=== PATIENT | female | born 1945 | race Caucasian/White ===

== ENCOUNTER → 2017-04-15 | Outpatient (CLI) | payer OTHER ==
[2015-07-19 10:21] VITALS: BP 115/55
--- NOTE | 2017-04-20 14:32 | MG ---
HISTORY: SCREENING Comparison: 04/14/2016 FINDINGS: Bilateral CC and MLO projections of the right and left breast were obtained. Scattered fibroglandula r tissue is seen to be present. No significant architectural distortion, mass or clustered microcalc ifications can be observed to suggest malignancy. No skin thickening or nipple retraction is appreci ated. No pathological lymphadenopathy can be identified. Benign-appearing calcifications scattered throughout the right and left breasts are observed. IMPRESSION: NO RADIOGRAPHIC EVIDENCE OF MALIGNANCY. ACR CATEGORY 2 - benign findings. FOLLOW-UP EXAM 1 YEAR. Diagnostic CAD was utilized and reviewed. * 0 (ZERO) - ASSESSMENT INCOMPLETE; ADDITIONAL IMAGING IS NEEDED. * 1/ (ONE) - NEGATIVE. * 2/II (TWO) - BENIGN FINDINGS. * 3/III (THREE) - PROBABLY BENIGN FINDING; SHORT INTERVAL FOLLOW-UP SUGGESTED. * 4/IV (FOUR) - SUSPICIOUS ABNORMALITY; BIOPSY SHOULD BE CONSIDERED. * 5/V - HIGHLY SUSPICIOUS OF MALIGNANCY; BIOPSY SHOULD BE PERFORMED. A NEGATIVE X-RAY REPORT SHOULD NOT DELAY BIOPSY IF A DOMINANT OR CLINICALLY SUSPICIOUS MASS IS PRESENT; 4 TO 8 PERCENT OF CANCERS ARE NOT IDENTIFIED BY X-RAY. A NEGA TIVE REPORT MAY REINFORCE THE CLINICAL IMPRESSION. ADENOSIS AND DENSE BREASTS MAY OBSCURE AN UNDERLY ING NEOPLASM. Reported By:
== END ==
LOC: RAD 10:00
PROVIDERS: ATTEND Internal Medicine
DX: Z12.31 Encounter for screening mammogram for malignant neoplasm of breast (principal)
CPT/HCPCS: 77067

== ENCOUNTER 2017-11-06 12:19 | Observation (INO) ==
[2017-11-06 12:26] VITALS: BMI 23.7
--- NOTE | 2017-11-06 12:49 | DR.NAUSEAF ---
HPI - Time Seen Time seen: 12:45 - Primary Care Physician Primary Care Physician: DAR MENDENHALL - HPI Comment HPI Comment: DIZZINESS, NAUSEA, ELEVATED BP. 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 - Reviewed Nurses Notes Reviewed: Yes - Source History Provided: Patient - Mode of Arrival Mode of Arrival: Wheelchair - Timing Onset of Chief Complaint: 11/06/17 - Context Onset: Spontaneous Recent: None : No History of: None - Quality Quality: Other (NAUSEA, NO VOMITING.) - Associated Signs and Symptoms Abdominal Pain Quality: Other (NONE) Symptoms: denies: Abdominal Pain PMH - PMH Past Medical History: Yes Past Medical History: Hypertension Past Medical History Comment: AFIB, Past Surgical History: Yes Surgical History: Hysterectomy, Other - Family History History of Family Medical Conditions: Yes Family Medical History: Diabetes Mellitus, Cancer, [place], Heart Failure, Hypertension - Social History Does patient currently use any type of tobacco product: No Have you used tobacco products in the last 12 months: No Type of Tobacco Use: None Does any household member use tobacco: No Alcohol Use: None Do you use any recreational Drugs:: No Lives With: Alone Lives Where: Home - infectious screening In the last 2 months have you had wt loss of >10#?: NO Have you had fever, night sweats or hemotysis?: No Have you traveled outside the country in the last 6 months?: No Isolation: Standard ROS - Review of Systems Constitutional: Weakness, Fatigue Eyes: No Symptoms Reported. negative: Eye Pain, Discharge ENTM: No Symptoms Reported. negative: Ear Pain, Nose Discharge, Nose Congestion , Throat Pain Respiratoy: Short of Breath (ONEXERSION). negative: Wheezing, Hemoptysis Cardiovascular: Chest Pain Gastrointestinal/Abdominal: Nausea Genitourinary: No Symptoms Reported Neurological: Headache, Weakness, Dizziness Musculoskeletal: No Symptoms Reported Integumentary: No Symptoms Reported Hematologic/Lymphatic: No Symptoms Reported Endocrine: No Symptoms Reported All Other Systems: Reviewed and Negative PE - General Limitations: No Limitations General Appearance: Alert - Head Head Exam: Normal Inspection - Eyes Eye exam: Normal Appearance - ENT ENT Exam: Normal External Ear Exam - Neck Neck Exam: Trachea Midline - Chest Chest Inspection: Symmetric Chest Wall Rise - Respiratory Respiratory Exam: Normal Lung Sounds Bilat Respiratory Exam: Bilateral Clear to Auscultation - Cardiovascular Cardiovascular Exam: Regular Rate, Normal Rhythm, Normal Heart Sounds - Abdominal Exam Abdominal Exam: Normal Bowel Sounds, Soft. negative: Tenderness - Rectal Rectal Exam: Deferred - External Exam: Female: Deferred : Speculum Exam (Female): Deferred : Bimanual Exam (female): Deferred - Extremities Extremities Exam: Normal Inspection - Back Back Exam: Normal Inspection - Neurologic Neurological Exam: Alert, Oriented X3, CN II-XII Intact. negative: Motor Sensory Deficit - Psychiatric Psychiatric Exam: Normal Affect, Normal Mood, Anxious - Skin Skin Exam: Normal Color - Vital Signs Vitals: Temperature 97.0 F Pulse Rate 61 Respiratory Rate 20 Blood Pressure [Left Arm] 113/56 Blood Pressure [Right Arm] 187/77 Blood Pressure 225/90 O2 Sat by Pulse Oximetry 100 MDM - Additional Information Obtained Additional Information Obtained From: Family (DIZZINESS, UNCONTROL HYPERTENSION , CHEST PAIN UTI) - Differential Diagnosis Differential Diagnosis Comment: DIZZINESS, CHEST PAIN, CVA, UNCONTROL HYPERTENSION Course - Treatment Treatment: SEE ORDERS. - Education/Counseling Education/Counseling: Patient, Family, Education Educated On: Diagnosis, Needs for Follow Up ROR - Labs Reviewed Laboratory Results Reviewed?: Yes Result Diagrams: 11/06/17 13:18 11/06/17 13:18 - XRAY XRAY Interpreted by: Radiologist XRAY Findings: REPORT DISCUSS WITH PATIENT. - EKG Rhythm: NSR (EKG NOTED.) - Labs Reviewed Laboratory: WBC 9.4 X10^3/uL (3.6-10.0) 11/06/17 13:18 RBC 4.33 X10^6/uL (3.5-5.4) 11/06/17 13:18 Hgb 12.8 g/dL (12.0-16.0) 11/06/17 13:18 Hct 37.6 % (36.0-47.0) 11/06/17 13:18 MCV 86.9 fL (80.0-100.0) 11/06/17 13:18 MCH 29.6 pg (27.0-34.0) 11/06/17 13:18 MCHC 34.0 g/dL (33.0-35.0) 11/06/17 13:18 RDW 13.1 % (11.6-16.5) 11/06/17 13:18 Plt Count 312 X10^3/uL (150.0-450.0) 11/06/17 13:18 MPV 8.2 fL (7.4-11.0) 11/06/17 13:18 Neut % (Auto) 81.2 % (42.0-75.0) H 11/06/17 13:18 Lymph % (Auto) 13.6 % (21.0-51.0) L 11/06/17 13:18 [place] % (Auto) 4.1 % (0.0-13.0) 11/06/17 13:18 Eos % (Auto) 0.5 % (0.9-2.9) L 11/06/17 13:18 Baso % (Auto) 0.6 % (0.2-1.0) 11/06/17 13:18 Neut # (Auto) 7.7 x10^3/uL (2.2-4.8) H 11/06/17 13:18 Lymph # (Auto) 1.3 X10^3/uL (1.3-2.9) 11/06/17 13:18 [place] # (Auto) 0.4 x10^3/uL (0.3-0.8) 11/06/17 13:18 Eos # (Auto) 0.0 x10^3/uL (0.0-0.2) 11/06/17 13:18 Baso # (Auto) 0.1 X10^3/uL (0.0-0.1) 11/06/17 13:18 Absolute Nucleated RBC 0.0 /100WBC 11/06/17 13:18 Sodium 137 mmol/L (136-145) 11/06/17 13:18 Corrected Sodium 137 mmol/L (136-145) 11/06/17 13:18 Potassium 4.5 mmol/L (3.5-5.1) 11/06/17 13:18 Chloride 102 mmol/L (98-107) 11/06/17 13:18 Carbon Dioxide 26.2 mmol/L (21-32) 11/06/17 13:18 BUN 24 mg/dL (7-18) H 11/06/17 13:18 Creatinine 0.91 mg/dL (0.55-1.02) 11/06/17 13:18 Est GFR (MDRD) Af Amer > 60 (>60) 11/06/17 13:18 Est GFR (MDRD) Non-Af > 60 (>60) 11/06/17 13:18 Glucose 120 mg/dL (65-99) H 11/06/17 13:18 Calcium 9.5 mg/dL (8.5-10.1) 11/06/17 13:18 Corrected Calcium TNP 11/06/17 13:18 Total Bilirubin 0.50 mg/dL (0.2-1.0) 11/06/17 13:18 AST 18 Units/L (15-37) 11/06/17 13:18 ALT 22 Units/L (12-78) 11/06/17 13:18 Alkaline Phosphatase 103 Units/L (46-116) 11/06/17 13:18 Creatine Kinase 74 Units/L (26-192) 11/06/17 13:18 CK-MB (CK-2) 1.5 ng/mL (0-4.0) 11/06/17 13:18 CK/CKMB % Calc 2.0 % (<4) 11/06/17 13:18 Troponin I < 0.02 ng/mL (0-1.5) 11/06/17 13:18 Total Protein 7.9 g/dL (6.4-8.2) 11/06/17 13:18 Albumin 3.9 g/dL (3.4-5.0) 11/06/17 13:18 Globulin 4.0 g/dL (2.5-4.5) 11/06/17 13:18 Albumin/Globulin Ratio 1.0 Ratio (1.1-2.1) L 11/06/17 13:18 Specimen Type Clean catch urine 11/06/17 14:28 Urine Color Yellow (YELLOW) 11/06/17 14:28 Urine Appearance Clear (CLEAR) 11/06/17 14:28 Urine pH 7.0 (5.0 - 8.0) 11/06/17 14:28 Ur Specific [place] 1.010 (1.000-1.030) 11/06/17 14:28 Urine Protein 1+ (NEGATIVE) 11/06/17 14:28 Urine Glucose (UA) Negative (NEGATIVE) 11/06/17 14:28 Urine Ketones Negative (NEGATIVE) 11/06/17 14:28 Urine Occult Blood 2+ (NEGATIVE) 11/06/17 14:28 Urine Nitrite Negative (NEGATIVE) 11/06/17 14:28 Urine Bilirubin Negative (NEGATIVE) 11/06/17 14:28 Urine Urobilinogen Normal (NORMAL) 11/06/17 14:28 Ur Leukocyte Esterase 1+ (NEGATIVE) 11/06/17 14:28 - Diagnosis Discharge Problem: Uncontrolled hypertension, Dizziness Chest pain Qualifiers: Chest pain type: other chest pain Qualified Code(s): R07.89 - Other chest pain ; R07.8 - Other chest pain - Discharge Plan Disposition: 09 ADMITTED INPATIENT Condition: Stable
[2017-11-06 13:39] LABS: BASOPHILS # (AUTO) 0.1 X10^3/uL (0.0-0.1); BASOPHILS % (AUTO) 0.6 % (0.2-1.0); EOSINOPHILS % (AUTO) 0.5 % (0.9-2.9); HEMATOCRIT 37.6 % (36.0-47.0); HEMOGLOBIN 12.8 g/dL (12.0-16.0); LYMPHOCYTES # (AUTO) 1.3 X10^3/uL (1.3-2.9); LYMPHOCYTES % (AUTO) 13.6 % (21.0-51.0); MEAN CORPUSCULAR HEMOGLOBIN 29.6 pg (27.0-34.0); MEAN CORPUSCULAR VOLUME 86.9 fL (80.0-100.0); MEAN PLATELET VOLUME 8.2 fL (7.4-11.0); MONOCYTES # (AUTO) 0.4 x10^3/uL (0.3-0.8); MONOCYTES % (AUTO) 4.1 % (0.0-13.0); NEUTROPHILS # (AUTO) 7.7 x10^3/uL (2.2-4.8); NEUTROPHILS % (AUTO) 81.2 % (42.0-75.0); PLATELET COUNT 312 X10^3/uL (150.0-450.0); RED BLOOD COUNT 4.33 X10^6/uL (3.5-5.4); RED CELL DISTRIBUTION WIDTH 13.1 % (11.6-16.5); WHITE BLOOD COUNT 9.4 X10^3/uL (3.6-10.0)
--- NOTE | 2017-11-06 13:40 | CT ---
HISTORY: Headache, dizziness Study: CT head without contrast Comparison: None Technique: Axial noncontrast images with coronal and sagittal reformats. Dose reduction procedures we re used with mA/kv adjusted for body size. Findings: The ventricles are normal in size shape and position. There are no areas of abnormal attenuation to s uggest recent or remote CVA,, mass lesion, or extra-axial fluid collection. The visualized sinuses ar e clear. The calvarium is intact. IMPRESSION: No significant abnormality identified Reported By:
[2017-11-06] MEDS ORDERED: TORADOL 30 MG VIAL IVP ONE (13:44)
[2017-11-06] MEDS ORDERED: TORADOL 30 MG VIAL ONE (13:47)
[2017-11-06 13:53] LABS: BLOOD UREA NITROGEN 24 mg/dL (7-18); CALCIUM 9.5 mg/dL (8.5-10.1); CARBON DIOXIDE 26.2 mmol/L (21-32); CHLORIDE 102 mmol/L (98-107); COR NA(FOR HYPERGLY) 137 mmol/L (136-145); CREATININE 0.91 mg/dL (0.55-1.02); SODIUM 137 mmol/L (136-145); TROPONIN I < 0.02 ng/mL (0-1.5); eGFR NON BLACK RACES > 60 (>60)
[2017-11-06 13:57] LABS: ALANINE AMINOTRANSFERASE 22 Units/L (12-78); ALBUMIN 3.9 g/dL (3.4-5.0); ALKALINE PHOSPHATASE 103 Units/L (46-116); ASPARTATE AMINO TRANSFERASE 18 Units/L (15-37); CREATINE KINASE 74 Units/L (26-192); CREATINE KINASE MB 1.5 ng/mL (0-4.0); TOTAL PROTEIN 7.9 g/dL (6.4-8.2)
[2017-11-06] MEDS ORDERED: NIFEDIPINE CAP 10 MG PO ONE (14:09)
[2017-11-06] MEDS ORDERED: NIFEDIPINE CAP 10 MG ONE (14:10)
[2017-11-06 14:55] LABS: BILIRUBIN,URINE NEGATIVE (NEGATIVE); BLOOD/HEMOGLOBIN,URINE 2+ (NEGATIVE); GLUCOSE, URINE NEGATIVE (NEGATIVE); KETONES,URINE NEGATIVE (NEGATIVE); LEUKOCYTE ESTERASE ,URINE 1+ (NEGATIVE); NITRITES,URINE NEGATIVE (NEGATIVE); PROTEIN,URINE 1+ (NEGATIVE); UROBILINOGEN,URINE NORMAL (NORMAL)
[2017-11-06 14:57] LABS: APPEARANCE,URINE CLEAR (CLEAR); COLOR,URINE YELLOW (YELLOW)
[2017-11-06 15:04] LABS: AMORPHOUS SEDIMENT,UR 1+ /HPF (NEGATIVE); BACTERIA,URINE TRACE /HPF (NEGATIVE); RBC,URINE 0-2 /HPF (NONE SEEN); SQUAMOUS EPITHELIAL CELL,UR MODERATE /HPF (NEGATIVE)
[2017-11-06] MEDS ORDERED: NS 1/2 1000 ML IV 1,000 ML IV ONE (17:01)
[2017-11-06] MEDS: NS 1/2 1000 ML IV 1,000 ML IV SCH (17:03)
[2017-11-06 19:04] LABS: CKMB % 1.5 % (<4); CREATINE KINASE 72 Units/L (26-192); CREATINE KINASE MB 1.1 ng/mL (0-4.0); TROPONIN I < 0.02 ng/mL (0-1.5)
[2017-11-07 01:45] LABS: CKMB % 1.6 % (<4); CREATINE KINASE 64 Units/L (26-192); CREATINE KINASE MB < 1.0 ng/mL (0-4.0); TROPONIN I < 0.02 ng/mL (0-1.5)
[2017-11-07 05:23] LABS: BASOPHILS # (AUTO) 0.1 X10^3/uL (0.0-0.1); BASOPHILS % (AUTO) 0.7 % (0.2-1.0); EOSINOPHILS # (AUTO) 0.2 x10^3/uL (0.0-0.2); EOSINOPHILS % (AUTO) 2.9 % (0.9-2.9); HEMOGLOBIN 12.7 g/dL (12.0-16.0); LYMPHOCYTES # (AUTO) 2.4 X10^3/uL (1.3-2.9); LYMPHOCYTES % (AUTO) 31.1 % (21.0-51.0); MEAN CORPUSCULAR HEMOGLOBIN 29.6 pg (27.0-34.0); MEAN CORPUSCULAR HGB CONC 34.3 g/dL (33.0-35.0); MEAN CORPUSCULAR VOLUME 86.5 fL (80.0-100.0); MEAN PLATELET VOLUME 8.2 fL (7.4-11.0); MONOCYTES # (AUTO) 0.5 x10^3/uL (0.3-0.8); MONOCYTES % (AUTO) 6.8 % (0.0-13.0); NEUTROPHILS # (AUTO) 4.6 x10^3/uL (2.2-4.8); NEUTROPHILS % (AUTO) 58.5 % (42.0-75.0); PLATELET COUNT 301 X10^3/uL (150.0-450.0); RED BLOOD COUNT 4.27 X10^6/uL (3.5-5.4); RED CELL DISTRIBUTION WIDTH 13.1 % (11.6-16.5); WHITE BLOOD COUNT 7.9 X10^3/uL (3.6-10.0)
[2017-11-07 05:35] LABS: ALANINE AMINOTRANSFERASE 17 Units/L (12-78); ALBUMIN 3.4 g/dL (3.4-5.0); ALKALINE PHOSPHATASE 90 Units/L (46-116); ASPARTATE AMINO TRANSFERASE 18 Units/L (15-37); BLOOD UREA NITROGEN 20 mg/dL (7-18); CALCIUM 9.1 mg/dL (8.5-10.1); CARBON DIOXIDE 26.3 mmol/L (21-32); CHLORIDE 107 mmol/L (98-107); CREATININE 0.79 mg/dL (0.55-1.02); MAGNESIUM 1.8 mg/dL (1.7-2.9); SODIUM 141 mmol/L (136-145); TOTAL PROTEIN 7.4 g/dL (6.4-8.2); eGFR NON BLACK RACES > 60 (>60)
[2017-11-07] MEDS ORDERED: MULTIVITAMIN WITH MINERALS PO SCH (09:00)
[2017-11-07] MEDS ORDERED: ANTIVERT TAB 25 MG ONE (09:26)
[2017-11-07] MEDS: LOPRESSOR TAB 50 MG PO SCH (09:29)
[2017-11-07] MEDS: COZAAR PO SCH (09:29)
[2017-11-07] MEDS: ANTIVERT TAB 25 MG PO SCH ×2 (09:31→21:19)
[2017-11-07] MEDS: TAB-A-VITE PO SCH (09:31)
--- NOTE | 2017-11-07 15:15 | VAS ---
HISTORY: Hypertension Study: Carotid sonogram Comparison: None Technique: Multiple grayscale sonographic images were obtained. Color duplex Doppler evaluation was p erformed. Findings: On the right, there is mild plaque present in the carotid bifurcation. Peak systolic velocity in the internal carotid artery 121.7 centimeters/second. ICA/CCA ratio 1.4. No stenosis is present. Flow in the vertebral artery was antegrade. On the left, mild plaque is present. Peak systolic velocity in th e internal carotid artery 111.6 centimeters/second. ICA/CCA ratio 1.2. Flow in the left vertebral art sandy was antegrade. IMPRESSION: No evidence for hemodynamically significant stenosis on either side Reported By:
[2017-11-07] MEDS: NS 1/2 1000 ML IV 1,000 ML IV SCH (21:22)
[2017-11-08 06:40] LABS: BASOPHILS # (AUTO) 0.1 X10^3/uL (0.0-0.1); BASOPHILS % (AUTO) 0.9 % (0.2-1.0); EOSINOPHILS # (AUTO) 0.3 x10^3/uL (0.0-0.2); EOSINOPHILS % (AUTO) 4.2 % (0.9-2.9); HEMATOCRIT 39.2 % (36.0-47.0); HEMOGLOBIN 13.4 g/dL (12.0-16.0); LYMPHOCYTES # (AUTO) 2.5 X10^3/uL (1.3-2.9); LYMPHOCYTES % (AUTO) 33.5 % (21.0-51.0); MEAN CORPUSCULAR HEMOGLOBIN 29.7 pg (27.0-34.0); MEAN CORPUSCULAR HGB CONC 34.1 g/dL (33.0-35.0); MEAN CORPUSCULAR VOLUME 87.2 fL (80.0-100.0); MEAN PLATELET VOLUME 8.1 fL (7.4-11.0); MONOCYTES # (AUTO) 0.6 x10^3/uL (0.3-0.8); MONOCYTES % (AUTO) 7.9 % (0.0-13.0); NEUTROPHILS # (AUTO) 3.9 x10^3/uL (2.2-4.8); NEUTROPHILS % (AUTO) 53.5 % (42.0-75.0); PLATELET COUNT 307 X10^3/uL (150.0-450.0); WHITE BLOOD COUNT 7.3 X10^3/uL (3.6-10.0)
[2017-11-08 06:59] LABS: ALANINE AMINOTRANSFERASE 16 Units/L (12-78); ALBUMIN 3.5 g/dL (3.4-5.0); ALKALINE PHOSPHATASE 92 Units/L (46-116); ASPARTATE AMINO TRANSFERASE 16 Units/L (15-37); BLOOD UREA NITROGEN 26 mg/dL (7-18); CALCIUM 9.1 mg/dL (8.5-10.1); CARBON DIOXIDE 27.2 mmol/L (21-32); CHLORIDE 107 mmol/L (98-107); CREATININE 0.84 mg/dL (0.55-1.02); SODIUM 142 mmol/L (136-145); TOTAL PROTEIN 7.8 g/dL (6.4-8.2); eGFR NON BLACK RACES > 60 (>60)
[2017-11-08 08:25] VITALS: BP 139/63
[2017-11-08] MEDS: LOPRESSOR TAB 50 MG PO SCH (09:26)
[2017-11-08] MEDS: ANTIVERT TAB 25 MG PO SCH (09:26)
[2017-11-08] MEDS: TAB-A-VITE PO SCH (09:27)
[2017-11-08] MEDS: COZAAR PO SCH (09:27)
--- NOTE | 2017-12-03 01:03 | DR.CARTERD ---
- Discharge Summary for: Discharge Summary for Date of:: 11/08/17 - Admission Date Date of Admission: 11/06/17 - Admission Diagnoses Admission Diagnosis: 1. Chest pain 2. Shortness of breath 3. Nausea 4. Fatigue - Discharge Date Discharge Date: 11/08/17 - Discharge Diagnoses Discharge Diagnosis: 1. Chest pain 2. Shortness of breath 3. Nausea 4. Fatigue - Hospital Course Hospital Course: Day one, Ms. Becker presented to the emergency room with reports of dizziness and elevated blood pressure. Patient reported she was at work and became dizzy. She stated she went home and took 1/4 of an Antivert and 1/2 of a Lopressor and symptoms continued. Patient was then seen in the office and was sent to the hospital for further evaluation. On arrival to the hospital patient noted with a blood pressure of 225/90. Associated symptoms included chest pain, weakness, fatigue, headache, shortness of breath and nausea. Patient given Nifedipine by mouth with a decrease in blood pressure noted. EKG revealed possible anterior infarct. Patient admitted to the hospital as observation for serial cardiac enzymes and EKG's. Medical History: Hypertension , A-Fib. Medications: Nifedipine 10mg po x1, Toradol 30mg IV x1, 1/2 NS @20ml/ hr Abnormal Labs: BUN 24, Glucose 120, A/G Ratio 1.0. Urinalysis: Protein 1+, Occult Blood 2+, Leuk Est 1+, RBC 0-2, WBC 0-2, Sediment 1+, Bacteria Trace. Brain CT: No significant abnormality identified. EKG: Sinus Rhythm, Probable Left Atrial Enlargement, Borderline Left [place] Deviation, Consider Anterior Infarct, rate=58. Day two, patient continued with chest pain and dizziness. She denied shortness of breath. Home medications were restarted. We continued to monitor on telemetry. On day three, patient reported she was feeling better. No acute distress was noted. She denied chest pain, shortness of breath, or dizziness. All cardiac enzymes and ekg's wnl. Labs wnl. Vital signs stable. We planned for discharge. Instructions for medications and follow up were discussed with patient and family, both voiced understanding. Patient discharged home in stable condition with family. - Discharge Medications Discharge Medications: Home Medication List losartan 1 tab PO DAILY 11/06/17 [History] [id number]-HS-calcium-mins [Women's Daily Formula] 1 tab PO DAILY 11/06/17 [ History] multivitamin with minerals [Hair,Skin and Nails] 1 tab PO DAILY 11/06/17 [ History] Prescriptions: - Discharge Disposition Discharge Disposition: Patient is to follow up in our office in one week.
--- NOTE | 2017-12-17 21:43 | DR.H&P ---
H&P - History & Physical for Day of: H&P Date: 11/06/17 - Chief Complaint Chief Complaint: dizziness, hypertension - History of Present Illness History of Present Illness: is a 72 year old patient of ours who presented to the emergency room with reports of dizziness and elevated blood pressure. Patient reports she was at work and became dizzy. She states she went home and took 1/4 of an Antivert and 1/2 of a Lopressor and symptoms continued. Associated symptoms include chest pain, weakness, fatigue, headache , shortness of breath and nausea. Patient was then seen in the office where her blood pressure was noted to be elevated. We sent patient to the emergency room for further evaluation. On arrival to the hospital, patient noted with a blood pressure of 225/90. Labs were obtained. Abnormal Labs include the following: BUN 24, Glucose 120, A/G Ratio 1.0. Urinalysis revealed: Protein 1+, Occult Blood 2+, Leuk Est 1+, RBC 0-2, WBC 0-2, Sediment 1+, Bacteria Trace. Brain CT revealed: No significant abnormality identified. EKG revealed: Sinus Rhythm. Probable Left Atrial Enlargement. Borderline Left [place] Deviation. Consider Anterior Infarct. Rate=58. Patient given Nifedipine by mouth with a decrease in blood pressure noted. Patient admitted to the hospital as observation for serial cardiac enzymes and EKG's. We planned to follow up with AM labs and continue to monitor patient. - Past Medical History Past Medical History: Hypertension - Past Surgical History Surgical History: Hysterectomy, Other - Family History Family Medical History: Diabetes Mellitus, Cancer, [place], Heart Failure, Hypertension - Social History Does patient currently use any type of tobacco product: No Have you used tobacco products in the last 12 months: No Type of Tobacco Use: None Does any household member use tobacco: No Alcohol Use: None Drug Use: None - Medications Home Medications: levofloxacin [From Levaquin] Allergy (Verified 11/06/17 12:21) CONTINUE taking the following medications losartan 1 tab PO DAILY 11/06/17 [History] uyszwvgs-pxte-AL-calcium-mins [Women's Daily Formula] 1 tab PO DAILY 11/06/17 [ History] multivitamin with minerals [Hair,Skin and Nails] 1 tab PO DAILY 11/06/17 [ History] - Review of Systems Constitutional: Weakness, Malaise Eyes: No Symptoms Reported ENT: No Symptoms Reported Respiratory: Shortness of Breath Cardiovascular: Chest Pain, Light Headedness Gastrointestinal: Nausea Genitourinary: No Symptoms Reported Musculoskeletal: No Symptoms Reported Skin: No Symptoms Reported Neurological: Weakness, Other (headache ) - Physical Exam Vital Signs: Temperature 98 F Pulse Rate [Left Brachial] 50 Pulse Rate 61 Respiratory Rate 21 Blood Pressure [Left Arm] 139/63 Blood Pressure [Right Arm] 126/81 Blood Pressure 225/90 O2 Sat by Pulse Oximetry 97 Oriented: Normal Eyes: Normal Ear: Normal Nose: Normal Throat: Normal Respiratory: Diminished Throughout Cardiovascular: Normal. negative: S3, S4, Murmur : Normal Auscultation: Bowel Sounds: Normal Palpation: Normal Tenderness: Normal Skin: Normal Musculoskeletal: Normal Psychiatric: Normal Mood Description: Calm Affect: Normal Speech Pattern: Clear - Assessment/Plan (1) Chest pain Qualifiers: Chest pain type: other chest pain Qualified Code(s): R07.89 - Other chest pain; R07.8 - Other chest pain Status: Acute Plan: admit, serial cardiac enzymes and ekgs, telemetry, continue to monitor (2) Dizziness Status: Acute (3) Hypertension Qualifiers: Hypertension type: essential hypertension Qualified Code(s): I10 - Essential (primary) hypertension Status: Acute Plan: monitor nibp, continue home medications - Allergies Allergies/Adverse Reactions: Allergies Allergy/AdvReac Type Severity Reaction Status Date / Time levofloxacin [From Levaquin] Allergy Verified 11/06/17 12:21
--- NOTE | 2017-12-17 21:53 | PCM.PROG ---
Progress Note - Progress Note for Day of Date of Exam: 11/07/17 - Subjective Subjective: WAS ADMITTED FOR CHEST PAIN, DIZZINESS, AND HYPERTENSION. TODAY, SHE IS ALERT AND ORIENTED, LYING IN BED ON MORNING ROUNDS. SHE DENIES CHEST PAIN, BUT CONTINUES WITH COMPLAINTS OF DIZZINESS AT TIMES. SHE WAS NOTED TO BE BRADYCARDIC THROUGHOUT THE NIGHT WITH HR FALLING INTO THE 40S AT TIMES. HER VITALS THIS MORNING ARE 97.9-53-21-96%-142/65. SHE IS HEMODYNAMICALLY STABLE TODAY. CARDIAC ENZYMES AND EKGS HAVE BEEN WITHIN NORMAL LIMITS. TODAY, WE WILL START ANTIBERT 12.5MG PO BID. WE WILL OBTAIN A CAROTID DOPPLER AND HOLD HER METOPROLOL. OTHERWISE, WE PLAN TO FOLLOW UP WITH AM LABS AND CONTINUE TO MONITOR PATIENT. - Past Medical Family Social History Past Med/Fam/Surg Hx: No changes since H&P Allergies: Allergies levofloxacin [From Levaquin] Allergy (Verified 11/06/17 12:21) - Review of Systems ROS: No change since H&P - Vital Signs and I&O's Vital Signs: Temperature 98 F Pulse Rate [Left Brachial] 50 Pulse Rate 61 Respiratory Rate 21 Blood Pressure [Left Arm] 139/63 Blood Pressure [Right Arm] 126/81 Blood Pressure 225/90 O2 Sat by Pulse Oximetry 97 - Physical Exam Oriented: Normal Eyes: Normal Ear: Normal Nose: Normal Throat: Normal Cardiovascular: Normal, Bradycardia. negative: S3, S4, Murmur : Normal Auscultation: Bowel Sounds: Normal Palpation: Normal Tenderness: Normal Skin: Normal Musculoskeletal: Normal Psychiatric: Normal Mood Description: Calm Affect: Normal Speech Pattern: Clear - Laboratory and Diagnostics Result Diagrams: 11/08/17 05:50 11/08/17 05:50 Labs: Laboratory WBC 7.3 X10^3/uL (3.6-10.0) 11/08/17 05:50 RBC 4.50 X10^6/uL (3.5-5.4) 11/08/17 05:50 Hgb 13.4 g/dL (12.0-16.0) 11/08/17 05:50 Hct 39.2 % (36.0-47.0) 11/08/17 05:50 MCV 87.2 fL (80.0-100.0) 11/08/17 05:50 MCH 29.7 pg (27.0-34.0) 11/08/17 05:50 MCHC 34.1 g/dL (33.0-35.0) 11/08/17 05:50 RDW 13.0 % (11.6-16.5) 11/08/17 05:50 Plt Count 307 X10^3/uL (150.0-450.0) 11/08/17 05:50 MPV 8.1 fL (7.4-11.0) 11/08/17 05:50 Neut % (Auto) 53.5 % (42.0-75.0) 11/08/17 05:50 Lymph % (Auto) 33.5 % (21.0-51.0) 11/08/17 05:50 [place] % (Auto) 7.9 % (0.0-13.0) 11/08/17 05:50 Eos % (Auto) 4.2 % (0.9-2.9) H 11/08/17 05:50 Baso % (Auto) 0.9 % (0.2-1.0) 11/08/17 05:50 Neut # (Auto) 3.9 x10^3/uL (2.2-4.8) 11/08/17 05:50 Lymph # (Auto) 2.5 X10^3/uL (1.3-2.9) 11/08/17 05:50 [place] # (Auto) 0.6 x10^3/uL (0.3-0.8) 11/08/17 05:50 Eos # (Auto) 0.3 x10^3/uL (0.0-0.2) H 11/08/17 05:50 Baso # (Auto) 0.1 X10^3/uL (0.0-0.1) 11/08/17 05:50 Absolute Nucleated RBC 0.1 /100WBC 11/08/17 05:50 Sodium 142 mmol/L (136-145) 11/08/17 05:50 Corrected Sodium TNP 11/08/17 05:50 Potassium 4.3 mmol/L (3.5-5.1) 11/08/17 05:50 Chloride 107 mmol/L (98-107) 11/08/17 05:50 Carbon Dioxide 27.2 mmol/L (21-32) 11/08/17 05:50 BUN 26 mg/dL (7-18) H 11/08/17 05:50 Creatinine 0.84 mg/dL (0.55-1.02) 11/08/17 05:50 Est GFR (MDRD) Af Amer > 60 (>60) 11/08/17 05:50 Est GFR (MDRD) Non-Af > 60 (>60) 11/08/17 05:50 Glucose 86 mg/dL (65-99) 11/08/17 05:50 Calcium 9.1 mg/dL (8.5-10.1) 11/08/17 05:50 Corrected Calcium TNP 11/08/17 05:50 Magnesium 1.8 mg/dL (1.7-2.9) 11/07/17 04:40 Total Bilirubin 0.70 mg/dL (0.2-1.0) 11/08/17 05:50 AST 16 Units/L (15-37) 11/08/17 05:50 ALT 16 Units/L (12-78) 11/08/17 05:50 Alkaline Phosphatase 92 Units/L (46-116) 11/08/17 05:50 Creatine Kinase 64 Units/L (26-192) 11/07/17 00:40 CK-MB (CK-2) < 1.0 ng/mL (0-4.0) 11/07/17 00:40 CK/CKMB % Calc 1.6 % (<4) 11/07/17 00:40 Troponin I < 0.02 ng/mL (0-1.5) 11/07/17 00:40 Total Protein 7.8 g/dL (6.4-8.2) 11/08/17 05:50 Albumin 3.5 g/dL (3.4-5.0) 11/08/17 05:50 Globulin 4.3 g/dL (2.5-4.5) 11/08/17 05:50 Albumin/Globulin Ratio 0.8 Ratio (1.1-2.1) L 11/08/17 05:50 Specimen Type Clean catch urine 11/06/17 14:28 Urine Color Yellow (YELLOW) 11/06/17 14:28 Urine Appearance Clear (CLEAR) 11/06/17 14:28 Urine pH 7.0 (5.0 - 8.0) 11/06/17 14:28 Ur Specific [place] 1.010 (1.000-1.030) 11/06/17 14:28 Urine Protein 1+ (NEGATIVE) 11/06/17 14:28 Urine Glucose (UA) Negative (NEGATIVE) 11/06/17 14:28 Urine Ketones Negative (NEGATIVE) 11/06/17 14:28 Urine Occult Blood 2+ (NEGATIVE) 11/06/17 14:28 Urine Nitrite Negative (NEGATIVE) 11/06/17 14:28 Urine Bilirubin Negative (NEGATIVE) 11/06/17 14:28 Urine Urobilinogen Normal (NORMAL) 11/06/17 14:28 Ur Leukocyte Esterase 1+ (NEGATIVE) 11/06/17 14:28 Urine RBC 0-2 /HPF (NONE SEEN) 11/06/17 14:28 Urine WBC 0-2 /HPF (NONE SEEN) 11/06/17 14:28 Ur Squamous Epith Cells Moderate /HPF (NEGATIVE) 11/06/17 14:28 Amorphous Sediment 1+ /HPF (NEGATIVE) 11/06/17 14:28 Urine Bacteria Trace /HPF (NEGATIVE) 11/06/17 14:28 Ur Culture Indicated? No/not indicated 11/06/17 14:28 - Plan (1) Chest pain Status: Acute Qualifiers: Chest pain type: other chest pain Qualified Code(s): R07.89 - Other chest pain; R07.8 - Other chest pain Plan: admit, serial cardiac enzymes and ekgs, telemetry, continue to monitor (2) Dizziness Status: Acute (3) Hypertension Status: Acute Qualifiers: Hypertension type: essential hypertension Qualified Code(s): I10 - Essential (primary) hypertension Plan: monitor nibp, continue home medications
== END 2017-11-08 10:25 | disposition home or self-care (01) ==
LOC: ER 12:36 → MED/SURG 12:36
PROVIDERS: ADMIT Internal Medicine; ATTEND Internal Medicine
DX: R07.89 Other chest pain; I10 Essential (primary) hypertension; R51 Headache; R42 Dizziness and giddiness; E11.8 Type 2 diabetes mellitus with unspecified complications; R94.31 Abnormal electrocardiogram [ECG] [EKG]; R53.1 Weakness
CPT/HCPCS: 36415; 70450; 80053; 81001; 82550; 82553; 83735; 84484; 85025; 93005; 93880; 94760; 96365; 96374; 96375; 99284; A4222; G0378; J1885